=== PATIENT | male | born 1990 | race Caucasian/White ===

== ENCOUNTER 2019-02-12 16:32 | Emergency (ER) | payer OTHER ==
--- NOTE | 2019-02-12 16:52 | ER Document Report ---
ED Medical Screen (RME) - General Chief Complaint: Suicidal Ideation Stated Complaint: PSYCH EVAL Time Seen by Provider: 02/12/19 16:45 Mode of Arrival: Ambulatory Information source: Patient Notes: Patient presents with suicidal ideation and a plan to hang himself. Patient states he stopped taking his Prozac a month ago because he did not feel it was helping. Patient presents tonight at the insistence of family members. Patient reports multiple stressors in his life. Patient lives at home with a roommate and has been from his for the past year. Patient denies any pre vious hospitalizations for mental health problems. Patient denies any previous suicidal attempt. I have greeted and performed a rapid initial assessment of this patient. A comprehensive ED assessment and evaluation of the patient, analysis of test results and completion of the medical decision making process will be conducted by additional ED providers. - Related Data Allergies/Adverse Reactions: cephalexin [From Keflex] Allergy (Verified 02/12/19 16:48) phenytoin [From Dilantin] Allergy (Verified 02/12/19 16:48) Past Medical History - Social History Chew tobacco use (# tins/day): No Frequency of alcohol use: None Drug Abuse: None Physical Exam - Vital signs Vitals: Temp Pulse Resp BP Pulse Ox 98.0 F 81 16 123/83 98 02/12/19 16:36 02/12/19 16:36 02/12/19 16:36 02/12/19 16:36 02/12/19 16:36 - Psychological Associated symptoms: Depressed, Flat affect Course - Vital Signs Vital signs: Temp Pulse Resp BP Pulse Ox 98.0 F 81 16 123/83 98 02/12/19 16:36 02/12/19 16:36 02/12/19 16:36 02/12/19 16:36 02/12/19 16:36
[2019-02-12 17:26] LABS: ABSOLUTE BASOPHILS # (AUTO) 0.1 10^3/uL (0.0-0.2); ABSOLUTE EOSINOPHILS # (AUTO) 0.1 10^3/uL (0.0-0.6); ABSOLUTE LYMPHOCYTES (AUTO) 2.2 10^3/uL (0.5-4.7); ABSOLUTE MONOCYTES (AUTO) 0.7 10^3/uL (0.1-1.4); ABSOLUTE NEUT (AUTO) 8.4 10^3/uL (1.7-8.2); BASOPHILS % (AUTO) 0.8 % (0-2); EOSINOPHILS % (AUTO) 1.3 % (0-6); HEMATOCRIT 46.5 % (37.9-51.0); HEMOGLOBIN 16.1 g/dL (13.5-17.0); LYMPHOCYTES % (AUTO) 19.4 % (13-45); MEAN CORPUSCULAR HEMOGLOBIN 29.3 pg (27.0-33.4); MEAN CORPUSCULAR HGB CONC 34.7 g/dL (32.0-36.0); MEAN CORPUSCULAR VOLUME 85 fl (80-97); MONOCYTES % (AUTO) 6.4 % (3-13); PLATELET COUNT 321 10^3/uL (150-450); SEGMENTED NEUTROPHILS % (AUTO) 72.1 % (42-78); TOTAL CELLS COUNTED % (AUTO) 100 %; WHITE BLOOD COUNT 11.6 10^3/uL (4.0-10.5)
--- NOTE | 2019-02-12 17:36 | ER Document Report ---
ED General - General Chief Complaint: Suicidal Ideation Stated Complaint: PSYCH EVAL Time Seen by Provider: 02/12/19 16:45 Mode of Arrival: Ambulatory - HPI Notes: Source/reliability: Patient/very reserved, eventually opens up. Mom/very good she is a nurse. HPI: 28-y/o M h/o unwanted separation from 1 y/a ultimately comes tonight voluntarily in private vehicle w/ mom/ his best friend for their concern about his text and other new comments of plan to hang himself and jump off a bridge but do it 60 miles away from home so no one no one could find him. 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 Mom knew he would not do anything always at work last night so tonight she and his best friend tried to go to the personnel clerk who questioned mom's concern and did not you the IVC papers. Mom was distraught but 1 of the diabetes outside said she also worked for [employer] included hopefully help. So just for support not for any need for worse they went over with another 2 diabetes just to help assist with transport in the event that they legally had transport him against his will but he became very unwilling to go but finally did talk to his best friend pressured riding and agreed that he would ride with mom and friend to the hospital but he would not go anywhere near his home. Mom says there is a gentleman she knows that has a program guardian one who deals with first responders going through crises she says that she feels will be actually hopefully good option. But for now worried about him but concern that he is at the "end of his rope". Very much pt says that he quit his Prozac a few months ago because it just did not work and mom says he stopped seeing any of his counselor/psychiatrist about 5 to 6 m/a. He says they tried me on Lexapro one other drug and then Prozac and so I am just sick of nothing working. A w/a he had to sign divorce papers. He told mom that in that time he is just having very vivid dreams of her and cannot sleep. Mom says she he just cannot stop thinking he is in love with her and cannot let her go even though she does not talk to him at all anymore. he and she corroborate his finances have been yet getting progressively worse. Mom says he took on the entire financial burden of the divorce and patient says now he is really only got bankruptcy as an option left. He says that he has been having vivid dreams of his ex- and cannot sleep recently especially in the last week since signing the divorce paper and he just cannot "let her go" mom says he loves her too much. Patient says he ultimately at this time says he just does not care anymore but agrees he actually would not go through with killing himself by hanging and he has not prepared any materials to do so, the main reason because his very best friend is about to have a baby. He says he would feel guilty. Mom says that this friend called reminded him he/she? needs him there for the of the baby. He denies any drug use alcohol use. - Related Data Allergies/Adverse Reactions: cephalexin [From Keflex] Allergy (Verified 02/12/19 16:48) phenytoin [From Dilantin] Allergy (Verified 02/12/19 16:48) Past Medical History - General Information source: Patient - Social History Smoking Status: Never Smoker Chew tobacco use (# tins/day): No Frequency of alcohol use: None Drug Abuse: None Family History: Reviewed & Not Pertinent Patient has suicidal ideation: Yes Patient has homicidal ideation: No Psychiatric Medical History: Reports: Hx Depression Physical Exam - Vital signs Vitals: Temp Pulse Resp BP Pulse Ox 98.0 F 81 16 123/83 98 02/12/19 16:36 02/12/19 16:36 02/12/19 16:36 02/12/19 16:36 02/12/19 16:36 Interpretation: Normal - General General appearance: Alert, Other - Reserved does not make good eye contact becomes more receptive to interview as progresses.. No: Anxious, Combative, Lethargic In distress: None - HEENT Head: Normocephalic, Atraumatic Eyes: Normal. No: Scleral icterus Conjunctiva: No: Injected Extraocular movements intact: Yes Pupils: PERRL Mouth/Lips: Normal Mucous membranes: Moist Pharynx: Normal Neck: Normal - Respiratory Respiratory status: No respiratory distress Chest status: Nontender Breath sounds: Normal Chest palpation: Normal - Cardiovascular Rhythm: Regular Heart sounds: Normal auscultation Murmur: No Pulses: Normal: Radial - Abdominal Inspection: Normal Distension: No distension Bowel sounds: Normal Tenderness: Nontender Organomegaly: No organomegaly - Back Back: Normal, Nontender - Extremities General upper extremity: Normal inspection, Nontender, Normal color, Normal ROM, Normal temperature General lower extremity: Normal inspection, Nontender, Normal color, Normal ROM, Normal temperature, Normal weight bearing. No: Judith's sign - Neurological Neuro grossly intact: Yes Cognition: Normal Orientation: AAOx4 [place] Coma Scale Eye Opening: Spontaneous [place] Coma Scale Verbal: Oriented [place] Coma Scale Motor: Obeys Commands [place] Coma Scale Total: 15 Speech: Normal Motor strength normal: LUE, RUE, LLE, RLE Sensory: Normal - Psychological Associated symptoms: Flat affect, Uncooperative - Reserved, very short. But begins to cooperate and divulge later in interview. mood and affect are congruent flat, which is not congruent with content of our conversation regarding suicide and divorce and his potential bankruptcy. Not tearful. No: Psychomotor agitation, Psychomotor depression, Restlessness, Tangential speech, Tearful - Skin Skin Temperature: Warm Skin Moisture: Dry Skin Color: Normal Course - Vital Signs Vital signs: Temp Pulse Resp BP Pulse Ox 98.3 F 79 16 122/76 96 02/13/19 05:52 02/13/19 05:52 02/13/19 05:52 02/13/19 05:52 02/13/19 05:52 - Laboratory Result Diagrams: 02/12/19 17:03 02/12/19 17:03 Laboratory results interpreted by me: 02/12/19 02/12/19 17:03 17:03 WBC 11.6 H Absolute Neuts (auto) 8.4 H Total Protein 8.7 H Salicylates < 1.0 L Acetaminophen < 10 L - EKG Interpretation by Me EKG shows normal: Sinus rhythm Rate: Normal Rhythm: No: Arrthymia [place]/QRS: No: Right axis deviation, Left axis deviation Voltage: No: Consistant with LVH Additional EKG results interpreted by me: 02/12/19 17:37 EKG reviewed by me at 1730. Normal sinus rhythm rate 81, all ST segments within normal limits no elevations depressions no other interval derangements. Voltage within normal limits axis within normal limits. No prior for comparison. - Transfer of Care Notes: 02/13/19 07:56 About [address] Miguel GOLDMAN that medically cleared and I have not signed any papers to commit him since he has been very cooperative and voluntary but if any point before psychiatry evaluates him that that should be performed. He is at extremely high risk and absolutely needs a full psychiatric provider evaluation Discharge - Discharge Clinical Impression: Suicidal risk, Suicidal thoughts, Suicidal behavior without attempted self- injury Condition: Stable Disposition: PSYCH HOSP/UNIT
[2019-02-12 18:09] LABS: ALBUMIN 4.8 g/dL (3.5-5.0); ALKALINE PHOSPHATASE 97 U/L (38-126); ANION GAP 12 (5-19); ASPARTATE AMINO TRANSFERASE 29 U/L (17-59); BILIRUBIN,DIRECT 0.1 mg/dL (0.0-0.4); BILIRUBIN,TOTAL 0.5 mg/dL (0.2-1.3); BLOOD UREA NITROGEN 7 mg/dL (7-20); CARBON DIOXIDE 25 mmol/L (22-30); CHLORIDE 105 mmol/L (98-107); GLUCOSE 101 mg/dL (75-110); POTASSIUM 4.2 mmol/L (3.6-5.0); TOTAL PROTEIN 8.7 g/dL (6.3-8.2)
[2019-02-12 18:12] LABS: ACETAMINOPHEN < 10 ug/mL (10-30); ALCOHOL < 10 mg/dL (NONE DETECTED); SALICYLATE < 1.0 mg/dL (2.0-20.0)
--- NOTE | 2019-02-12 18:25 | EKG REPORT ---
SEVERITY:- NORMAL ECG - SINUS RHYTHM : Confirmed by: Fantasma Gandhi 12-Feb-2019 18:25:13
[2019-02-12 20:49] LABS: APPEARANCE,URINE CLEAR; BILIRUBIN,URINE NEGATIVE (NEGATIVE); COLOR,URINE YELLOW; GLUCOSE, URINE NEGATIVE (NEGATIVE); KETONES,URINE NEGATIVE (NEGATIVE); LEUKOCYTE ESTERASE,URINE NEGATIVE (NEGATIVE); NITRITE,URINE NEGATIVE (NEGATIVE); PROTEIN,URINE NEGATIVE (NEGATIVE); URINE SPECIFIC GRAVITY 1.008; UROBILINOGEN,URINE NEGATIVE mg/dL (<2.0)
[2019-02-12 21:04] LABS: URINE AMPHETAMINES SCREEN NEGATIVE; URINE BARBITURATES SCREEN NEGATIVE; URINE BENZODIAZEPINES SCREEN NEGATIVE; URINE COCAINE SCREEN NEGATIVE; URINE MARIJUANA (THC) SCREEN NEGATIVE; URINE METHADONE SCREEN NEGATIVE; URINE PHENCYCLIDINE SCREEN NEGATIVE
--- NOTE | 2019-02-13 10:35 | ER Document Report ---
Doctor's Note Notes: 02/13/19 10:34 Patient is a 28-year-old male who presents emergency department by [employer] worker yesterday evening for irritability and depressed mood. Patient states that he is always had SI, but without any plan. He has no auditory or visual hallucinations. He has been eating and drinking without difficulty. No recent illness. He has no concerns or complaints. Denies any headache, fever, neck pain, URI, sore throat, chest pain, palpitations, syncope, cough, shortness of breath, wheeze, dyspnea, abdominal pain, nausea/vomiting/diarrhea, urinary retention, dysuria, hematuria, or rash. General: A&Ox4. Answers questions appropriately. Heart: RRR Lungs: CTAB Psych: normal affect A/P: Continue monitoring and med rec's per MH. Waiting on further rec's from MH team. Normal diet
[2019-02-13] MEDS ORDERED: OLANZAPINE 2.5 MG TABLET PO SCH (11:00)
--- NOTE | 2019-02-13 12:55 | PSYCHOLOGICAL NOTE ---
Psych Note - Psych Note Date seen by psych provider: 02/13/19 Time seen by psych provider: 07:45 Psych Note: Reason for consult: SI Patient is a 28 year old male who presents to ED via POV. Patient was accompanied by his family. Patient states he feels great, now. Patient states this change is a result of a good nights sleep. Patient states yesterday was too much of everything. Patient adamantly denies he is/was suicidal. Patient states he sent texts to relay my appreciation. Patient denies the text were a precursor to a suicide attempt. Patient states he was asked how he would commit suicide and replied hanging. Patient denied he had a plan and intent to commit suicide via hanging. Patient states he went along with this process against my wishes to appease his family. Patient denies he would ever do any harm to himself because he is an organ donor. Patient is experiencing significant psychosocial stressors. Patient recently a divorce and is also experiencing financial instability. 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 Patient speaks of being disassociated with work. Patient stated distress with the routine of his life being consumed by work, and then going home. Patient speaks of being detached from the job. Patient states its the only way to survive. Patient is considering a career change. Patient is linked with mental health service through [facility], however has not engaged in therapy because he felt his medication was working and he did not need mental health services. Patient was prescribed Prozac however discontinued Prozac due to vivid dreams. Patient described the dreams as a both nightmares and regular dreams. Patient is agreeable to clinician scheduling follow up with mental health provider and medication management. Patient has taken Prozac and Lexapro with little benefit, therefore patient is somewhat hesitant about medications. Collateral information was provided by mother. Mother and patient deny statement that patient threatened to attempt suicide via hanging and deny threat to jump off a bridge. Mother states her intent was to get the patient to agree to mental health services. Mother denies patient was suicidal. Mother states this situation has evolved into something she never intended. Patient and mother expressed frustration with the [place] who arrived on scene. Patient and mother stated the deputy, Radhika Ren, was acting on behalf of the [facility]'s department and [facility] simultaneously. At some point, mobile livestock farm workers, Bridgett arrived on scene. Mother has reached out to Joaquim at [facility] who has agreed to see patient. Patient had an appointment today but he was here in the ED and unable to keep appointment. Mother states that patient signed his divorce papers on Monday. Mother described Monday as patients emotional breaking point. Mother stated patient did not want the marriage to end and he took the financial brunt of the divorce. Mother denies patient has children. Mother stated patient is a shit magnet for bad calls. Mother states patient is effected by the calls despite his attempts otherwise. Patient is alert and oriented to person, place, time and circumstance. Mood is normal with congruent affect as evidenced by appropriate engagement with clinician. Patient denies suicidal and homicidal ideations. Delusions are absent and behavior is congruent with an intact reality based presentation (i.e.: organized and linear through processes). There is no observed behavior that suggests patient is responding to internal stimuli. Patient denies current auditory and visual hallucinations. Eye contact is appropriate. Conversational speech is within normal rate, tone, and prosody. Intellectual ability appears to be within average range. Attention and concentration are good. Insight, judgment and impulse control are currently good. DSM Diagnosis: Possible PTSD Medication recommendations per [facility] contracted psychiatrist Dr. Jennifer MCCURDY is as follows: Zyprexa 2.5MG, twice a day Impression/Plan: Patient is cleared from acute psychiatric services. Patient does not meet IVC criteria per [place] GS 122C. A 24 hour IVC petition was initially recommended. After conceptualizing all of the information provided to clinician from patient and mother, and after staffing with Dr. Castorena, it is recommended that the 24 hour petition be rescinded. Patient denies suicidal and homicidal ideations. Delusions are absent and behavior is congruent with an intact reality based presentation. There is no observed behavior that suggests patient is responding to internal stimuli. Patient denies current auditory and visual hallucinations. Patient is experiencing emotional distress related to finances and career following a divorce. Patient has a strong support system in his family. Mother has agreed to be part of patients plan of care (i.e., take patient to follow up appointments, assist with scheduling follow up appointments, and medication management and administration). Patient is agreeable to treatment. Patient has an appointment scheduled today with Dr. Joaquim James at [facility] for medication management and mental health services. Patient will also follow up with routine mental health provider at [facility]. Dr. Castorena was consulted on the care and management of this patient; attending physician is in agreement with recommendations and disposition.
[2019-02-13 13:12] VITALS: BP 126/72
== END 2019-02-13 13:15 | disposition home or self-care (01) ==
LOC: ER 16:32
DX: F43.10 Post-traumatic stress disorder, unspecified (principal); F39 Unspecified mood [affective] disorder; R45.851 Suicidal ideations
CPT/HCPCS: 93005; 36415; 80307 ×4; 85025; 80053; 81001; 93010; J3490